=== PATIENT | female | born 1985 | race Caucasian/White ===

== ENCOUNTER 2019-06-14 19:22 | Emergency (ER) | payer OTHER, SELFPAY ==
[2019-06-14 19:24] VITALS: BP 118/67; PULSE 102; RESP 18; TEMP 36.7; O2SAT 98; BMI 26.6
--- NOTE | 2019-06-14 19:35 | ED.DCSUM_ITS ---
History of Present Illness Chief Complaint: Cold Sx Informant: Patient Onset: Days Context: Gradual Onset Timing: Continuous Current Severity: Moderate Maximum Severity: Moderate Narrative: The patient presents to the emergency department right-sided facial pressure, nasal drainage, neck pain. The patient states she was recently diagnosed with viral bronchitis. She was on prednisone and Mucinex. She states that she felt like she was getting better but over the past 2 days, her symptoms worsened. She is began to have pressure in her right face and into her neck. Her shortness of breath has improved. She still has had persistent cough. She denies any fever or chills. Prior similar symptoms: No Recent Illness/Hospitalization: Yes Past Medical History - Allergies and Home Meds Allergies/Adverse Reactions: Allergies No Known Allergies Allergy (Verified 06/14/19 19:23) Primary Care Physician: Durga Mobley MD [Primary Care Provider] - Prior records reviewed: Yes Past Medical History: None Surgical History: no surgical history Smoking Status: Never smoker Review of Systems General: Denies: Chills, Fever, Sweats Eyes: Denies: Visual changes - bilaterally, Diplopia ENT: Reports: Right ear pain. Denies: Rhinorrhea, Sore throat Cardiovascular: Denies: Chest pain, Palpitations Respiratory: Reports: Cough. Denies: Dyspnea, Dyspnea on exertion Gastrointestinal: Denies: Abdominal pain, Nausea, Vomiting, Diarrhea, Melena, Hematochezia Genitourinary: Denies: Dysuria, Hematuria, Frequency Musculoskeletal: Denies: Back pain, Extremity Pain Skin: Denies: Rash, Wounds Neurological: Denies: Headache, Weakness, Numbness Physical Exam Vital Signs/Narrative: Vital Signs Temp Pulse Resp BP Pulse Ox 06/14/19 19:24 98.0 F 102 H 18 118/67 98 Inital Vital Signs reviewed: Yes General: Well nourished, Well developed, No Acute Distress Head: Normocephalic, Atraumatic Eyes: Perrl, EOMI ENT: Moist mucous membranes, Nasal congestion, Sinus tenderness Neck: Supple, Nontender, - - Right-sided adenopathy Cardiovascular: Regular rate, Regular rhythm, No murmurs Respiratory: No distress, CTA bilaterally, Chest nontender Abdomen: Soft, Nontender, Nondistended, Normal bowel sounds Back: Nontender, Normal Inspection Extremities: Nontender, No edema Skin: Normal color, No rash Neurological: Alert, Oriented x3, Cranial nerves II-XII grossly intact, Normal Strength, Normal Sensation Psychological: Normal affect, Normal Mood Diagnostic/Tx/Re-eval - Medical Decision Making The patient has had viral symptoms for some time and now has tender lymphadenitis facial fullness and purulent nasal drainage. I do feel that antibiotic therapy would be appropriate as she has had symptoms greater than 10 days. I do not suspect meningitis or other dangerous process. She is very wel l-appearing. She will be started on Augmentin. She was counseled on concerning symptoms and reasons to return. She will be discharged home. Impression 1. Acute maxillary sinusitis ED Disposition - Plan for ED Patient: Instructions: Acute Sinusitis Prescriptions: Amox/Clavulanate Tablet [Augmentin Tablet] 875 mg PO Q12H #20 tab Prescription Printed Referrals: Durga Mobley MD [Primary Care Provider] -
[2019-06-14] MEDS: Amox/Clavulanate 875 MG Tablet PO (19:46)
== END 2019-06-14 19:51 | disposition home or self-care (01) ==
PROVIDERS: Emergency Provider Emergency Medicine; Family Provider Family Medicine; PCP Family Medicine
DX: J01.00 Acute maxillary sinusitis, unspecified (principal)
CPT/HCPCS: 99283